=== PATIENT | female | born 1985 | race Caucasian/White ===

== ENCOUNTER 2017-04-26 00:50 | Emergency (ER) | payer OTHER ==
[2017-04-26 01:05] VITALS: BP 111/78; PULSE 90; TEMP 98.6; BMI 39.4
--- NOTE | 2017-04-26 01:23 | PDOC ---
History of Present Illness - General Chief Complaint: Wound Infection Stated Complaint: THINKS SPIDER BITE ON LEG Time Seen by Provider: 04/26/17 01:13 History Source: Patient Exam Limitations: No Limitations - History of Present Illness Initial Comments: 04/26/17 01:17 Patient is a 31-year-old female with history of asthma, ovarian cystectomy complaining of pain to her left leg since 2 days. States she sustained an insect bite which occurred yesterday while outside in the yard. States she had some purulent drainage and then she started to have pain radiating up her leg which is now 9/10 sharp stabbing, continuos. Denies fever, chills, nausea, vomiting. PMD: Dr. Grover PMH X: As above PSocHX: 7 cigarettes per day, occasional alcohol, no drugs FamHx: noncontributory GENERAL/CONSTITUTIONAL: [No fever or chills. No weakness. No weight change.] HEAD, EYES, EARS, NOSE AND THROAT: [No change in vision. No ear pain or discharge. No sore throat.] CARDIOVASCULAR: [No chest pain or shortness of breath.] RESPIRATORY: [No cough, wheezing, or hemoptysis.] GASTROINTESTINAL: [No nausea, vomiting, diarrhea or constipation. No rectal bleeding.] GENITOURINARY: [No dysuria, frequency, or change in urination.] MUSCULOSKELETAL: [No joint or muscle swelling or pain. No neck or back pain.] SKIN AND BREASTS: (+) rash, (-) easy bruising.] NEUROLOGIC: [No headache, vertigo, loss of consciousness, or loss of sensation.] PSYCHIATRIC: [No depression or anxiety.] ENDOCRINE: [No increased thirst. No abnormal weight change.] HEMATOLOGIC/LYMPHATIC: [No anemia, easy bleeding, or history of blood clots.] ALLERGIC/IMMUNOLOGIC: [No hives or skin allergy. No latex allergy.] GENERAL: [The patient is awake, alert, and fully oriented, in no acute distress. ] HEAD: [Normal with no signs of trauma.] EYES: [Pupils equal, round and reactive to light, extraocular movements intact, sclera anicteric, conjunctiva clear.] ENT: [Ears normal, nares patent, oropharynx clear without exudates. Moist mucous membranes.] NECK: [Normal range of motion, supple without lymphadenopathy, JVD, or masses.] LUNGS: [Breath sounds equal, clear to auscultation bilaterally. No wheezes, and no crackles.] HEART: [Regular rate and rhythm, normal S1 and S2 without murmur, rub.] ABDOMEN: [Soft, nontender, normoactive bowel sounds. No guarding, no rebound. No masses.] EXTREMITIES: [Normal range of motion, no edema. No clubbing or cyanosis. No cords, erythema, or tenderness.] NEUROLOGICAL: [Cranial nerves II through XII grossly intact. Normal speech, normal gait.] PSYCH: [Normal mood, normal affect.] SKIN: [Warm, Dry, normal turgor, rasised hyperpigment open wound with surrounding erythematous and streaking, tenderness to palp Past History - Past Medical History Allergies/Adverse Reactions: Allergies Allergy/AdvReac Type Severity Reaction Status Date / Time No Known Allergies Allergy Verified 04/26/17 01:03 Home Medications: Ambulatory Orders Albuterol 0.083% Nebulizer Janel [Ventolin 0.083%] 1 neb NEB Q4H 04/26/17 Budesonide/Formeterol Fumarate [SYMBICORT 160/4.5mcg -] 1 inh PO BID PRN Cephalexin [Keflex] 500 mg PO QID 7 Days 04/26/17 Ibuprofen [Motrin -] 600 mg PO QID #28 tablet 04/26/17 Montelukast Na [Singulair -] 10 mg PO HS 04/26/17 Oxycodone HCl/Acetaminophen [Percocet 5-325 mg Tablet] 1 tab PO Q4H #20 tablet MDD 6 04/26/17 Asthma: Yes - Psycho/Social/Smoking Cessation Hx Suicidal Ideation: No Smoking History: Never smoked *Physical Exam - Vital Signs Last Vital Signs Temp Pulse Resp BP Pulse Ox 98.6 F 90 16 111/78 100 04/26/17 01:04 04/26/17 01:04 04/26/17 01:04 04/26/17 01:04 04/26/17 01:04 Medical Decision Making - Medical Decision Making 04/26/17 01:23 Patient is a 31-year-old female with history of asthma, ovarian cystectomy complaining of pain to her left leg since 2 days, with a cellulitic rash to her [place]. will treat with keflex and percocet and discharge. I discussed the physical exam findings, ancillary test results and final diagnoses with the patient. I answered all of the patient's questions. The patient was satisfied with the care received and felt comfortable with the discharge plan and treatment plan. The Patient agrees to follow up with the primary care physician within 24-72 hours. *DC/Admit/Observation/Transfer Diagnosis at time of Disposition: Insect bite Qualifiers: Encounter type: initial encounter Qualified Code(s): W57.XXXA - Bitten or stung by nonvenomous insect and other nonvenomous arthropods, initial encounter Cellulitis Qualifiers: Site of cellulitis: extremity Site of cellulitis of extremity: lower extremity Laterality: left Qualified Code(s): L03.116 - Cellulitis of left lower limb - Discharge Dispostion Disposition: HOME Condition at time of disposition: Stable - Prescriptions Prescriptions: Cephalexin [Keflex] 500 mg PO QID 7 Days Ibuprofen [Motrin -] 600 mg PO QID #28 tablet Oxycodone HCl/Acetaminophen [Percocet 5-325 mg Tablet] 1 tab PO Q4H #20 tablet MDD 6 - Patient Instructions Printed Discharge Instructions: DI for Wound Infection Additional Instructions: Your Discharge Instructions: You must call primary care physician within 24 hours to arrange follow-up. Return to the Emergency Department with any new, persistent or worsening symptoms, for fever, chills, SOB, dizziness or any other concerning changes that may occur. He was follow-up in 2 days for a wound check.
[2017-04-26] MEDS ORDERED: OXYCODONE/APAP 5/325MG COMBO TABLET PO ONE (01:24)
[2017-04-26] MEDS ORDERED: CEPHALEXIN MONOHYDRATE 500 MG CAPSULE (UD) PO ONE (01:24)
[2017-04-26] MEDS ORDERED: IBUPROFEN 600 MG TABLET (FP) PO ONE ×2 (01:25→01:37)
[2017-04-26] MEDS ORDERED: OXYCODONE/APAP 5/325MG COMBO TABLET ONE (01:36)
[2017-04-26] MEDS ORDERED: CEPHALEXIN MONOHYDRATE 250 MG CAPSULE (FP) ONE (01:37)
== END 2017-04-26 02:05 | disposition home or self-care (01) ==
LOC: JER 00:50
DX: L03.116 Cellulitis of left lower limb (principal); S80.862A Insect bite (nonvenomous), left lower leg, initial encounter; W57.XXXA Bitten or stung by nonvenomous insect and other nonvenomous arthropods, initial encounter; Y93.89 Activity, other specified; Y92.017 Garden or yard in single-family (private) house as the place of occurrence of the external cause
CPT/HCPCS: 99281-25